=== PATIENT | female | born 1935 | race Hispanic/Latino ===

== ENCOUNTER 2016-08-23 17:28 | Emergency (ER) | payer MEDICARE, BC ==
[2016-08-23 17:37] VITALS: BP 143/81; PULSE 64; RESP 16; TEMP 98.2; O2SAT 100
--- NOTE | 2016-08-23 18:02 | ED PDOC ---
Lower Extremity Pain/Injury Time Seen by Provider: 08/23/16 17:54 Chief Complaint (Nursing): Lower Extremity Problem/Injury Chief Complaint (Provider): Lower extremity problem History Per: Patient History/Exam Limitations: no limitations Onset/Duration Of Symptoms: Hrs (10x hours prior to arrival) Current Symptoms Are (Timing): Intermittent Episodes Severity: Mild Additional Complaint(s): 81 year old female presents to the ED with complaints of a lower extremity problem that started 10x hours ago. She reports that she has been experiencing non-traumatic pain to her left great toe. She doesn't know how the pain started. She denies having any other medical complaints. PMD: Gerson Vargas MD Past Medical History Reviewed: Historical Data, Nursing Documentation, Vital Signs Vital Signs: Last Vital Signs Temp 98.2 F 08/23/16 17:34 Pulse 64 08/23/16 17:34 Resp 16 08/23/16 17:34 BP 143/81 08/23/16 17:34 Pulse Ox 100 08/23/16 17:34 - Medical History PMH: Fractures, HTN, Osteoporosis Denies: Chronic Kidney Disease - Surgical History Surgical History: Appendectomy, Cholecystectomy - Family History Family History: States: Unknown Family Hx - Social History Alcohol: None Drugs: Denies - Home Medications Home Medications: Ambulatory Orders Medication Instructions Recorded Esomeprazole Magnesium [Nexium] 40 mg PO DAILY 10/16/15 - Allergies Allergies/Adverse Reactions: Allergies Allergy/AdvReac Type Severity Reaction Status Date / Time Penicillins Allergy RASH Verified 10/16/15 12:20 Review of Systems ROS Statement: Except As Marked, All Systems Reviewed And Found Negative Musculoskeletal: Positive for: Foot Pain (left dorsal first digit pain) Physical Exam - Reviewed Nursing Documentation Reviewed: Yes Vital Signs Reviewed: Yes - Physical Exam Appears: Positive for: Non-toxic, No Acute Distress Head Exam: Positive for: ATRAUMATIC, NORMOCEPHALIC Skin: Positive for: Warm, Dry. Negative for: Rash Respiratory: Negative for: Accessory Muscle Use, Respiratory Distress Extremity: Positive for: Capillary Refill (good capillary refill), Other (tip of toe: left dorsal first digit blister formed. bild tenderness). Negative for : Swelling (no erythema to left dorsal first digit) Neurologic/Psych: Positive for: Alert, Oriented (3x). Negative for: Motor/ Sensory Deficits - ECG O2 Sat by Pulse Oximetry: 100 (RA) Pulse Ox Interpretation: Normal Medical Decision Making Medical Decision Makin:54 Initial impression: 81 year old female with a blister that formed on the tip of her left dorsal first digit Initial plan: applied antibiotic cream and applied a bandage to blister. Scribe Attestation: Documented by Heidy Yan, acting as a scribe for Amy Machado MD. Provider Scribe Attestation: All medical record entries made by the Scribe were at my direction and personally dictated by me. I have reviewed the chart and agree that the record accurately reflects my personal performance of the history, physical exam, medical decision making, and the department course for this patient. I have also personally directed, reviewed, and agree with the discharge instructions and disposition. Disposition - Clinical Impression Clinical Impression: Blister - Disposition Referrals: FAMILY PROVIDER,NO [Primary Care Provider] - Disposition: Routine/Home Disposition Time: 17:54 Condition: STABLE Instructions: Blister (ED)
== END 2016-08-23 18:23 | disposition home or self-care (01) ==
LOC: H.ER 17:28
DX: M79.675 Pain in left toe(s) (principal)